=== PATIENT | male | born 1970 | race Caucasian/White ===

== ENCOUNTER 2017-07-18 20:49 | Emergency (ER) | payer MEDICAID ==
[2017-07-18 20:57] VITALS: BP 143/75; PULSE 85; RESP 20; TEMP 98.3; O2SAT 99
--- NOTE | 2017-07-18 21:22 | ED PDOC ---
Upper Extremity Pain/Injury Time Seen by Provider: 07/18/17 21:09 Chief Complaint (Nursing): Upper Extremity Problem/Injury Chief Complaint (Provider): left arm discomfort History Per: Patient History/Exam Limitations: no limitations Onset/Duration Of Symptoms: Hrs Current Symptoms Are (Timing): Better Additional History Per: Patient Additional Complaint(s): 47 y/o male presents for eval of left arm discomfort x 2 hours. Patient states symptoms started in left upper arm, then noticed tingling to digits 1-4 of left hand. Patient states he then noticed discomfort to left side of neck. Patient notes he had a sharp pain to left armpit a few days ago, unknown if related. History of pinched nerve to right side of neck diagnosed years ago. Denies headache, dizziness, extremity swelling/weakness, chest pain, shortness of breath, palpitations. Past Medical History Vital Signs: Last Vital Signs Temp 98.3 F 07/18/17 20:54 Pulse 85 07/18/17 20:54 Resp 20 07/18/17 20:54 BP 143/75 07/18/17 20:54 Pulse Ox 99 07/18/17 20:54 - Medical History PMH: Asthma (LAST ATTACK 06/17/16), HIV, Hypercholesterolemia, Sexually Transmitted Disease (HERPES) Denies: Chronic Kidney Disease - Family History Family History: States: Unknown Family Hx - Home Medications Home Medications: Ambulatory Orders Medication Instructions Recorded Albuterol HFA [Ventolin HFA 90 2 puff IH [id number] 06/22/16 mcg/actuation (8 g)] Atorvastatin [Lipitor] 20 mg PO DAILY 06/22/16 Elviteg/Annie/Emtric/Tenofo Dis 1 tab PO DAILY 06/22/16 [Stribild] Temazepam [Restoril] 15 mg PO DAILY 06/22/16 valACYclovir [Valtrex] 1 gm PO DAILY 06/22/16 Naproxen [Naprosyn] 500 mg PO Q12 PRN #20 tablet 07/18/17 - Allergies Allergies/Adverse Reactions: Allergies Allergy/AdvReac Type Severity Reaction Status Date / Time ciprofloxacin [From Cipro] Allergy RASH Verified 07/18/17 20:52 codeine Allergy RASH Verified 07/18/17 20:52 Review of Systems ROS Statement: Except As Marked, All Systems Reviewed And Found Negative Musculoskeletal: Positive for: Neck Pain, Arm Pain Physical Exam - Reviewed Nursing Documentation Reviewed: Yes Vital Signs Reviewed: Yes - Physical Exam Appears: Positive for: Well, Non-toxic, No Acute Distress Head Exam: Positive for: ATRAUMATIC, NORMAL INSPECTION, NORMOCEPHALIC Skin: Positive for: Normal Color Eye Exam: Positive for: Normal appearance ENT: Positive for: Normal ENT Inspection Cardiovascular/Chest: Positive for: Regular Rate, Rhythm Respiratory: Positive for: Normal Breath Sounds Gastrointestinal/Abdominal: Positive for: Normal Exam Back: Positive for: Normal Inspection Extremity: Positive for: Normal ROM Neurologic/Psych: Positive for: Alert, Oriented. Negative for: Motor/Sensory Deficits - Laboratory Results Result Diagrams: 07/18/17 21:55 07/18/17 22:04 - ECG ECG: Positive for: Viewed By Me (reviewed by ED attending) ECG Rhythm: Positive for: Sinus Rhythm O2 Sat by Pulse Oximetry: 99 - Progress ED Course And Treament: ekg, labs Patient educated on findings, discharged with instructions to follow up PMD 2-3 days. Rx naproxen provided. Return to ED for worsening/concerning symptoms. Disposition - Clinical Impression Clinical Impression: Paresthesia and pain of left extremity - Patient ED Disposition Is Patient to be Admitted: No Counseled Patient/Family Regarding: Studies Performed, Diagnosis, Need For Followup - Disposition Disposition: Routine/Home Disposition Time: 23:24 Condition: IMPROVED Additional Instructions: Follow up with primary doctor in 2-3 days. Take medication as directed, as needed. Return to ED for worsening/concerning symptoms. Prescriptions: Naproxen [Naprosyn] 500 mg PO Q12 PRN #20 tablet PRN Reason: Pain, Moderate (4-7) Instructions: Paresthesia (ED)
[2017-07-18 22:23] LABS: BASO # 0.1 K/uL (0.0-0.2); BASO % 0.9 % (0.0-2.0); EOS # 0.1 K/uL (0.0-0.7); EOS % 0.9 % (0.0-4.0); HEMATOCRIT 41.6 % (35.0-51.0); LYMPH % 24.4 % (20.0-40.0); MEAN PLATELET VOLUME 8.5 fl (7.2-11.7); MONO # 0.6 K/uL (0.0-0.8); MONO % 7.1 % (0.0-10.0); NEUT # 5.5 K/uL (1.8-7.0); NEUT % 66.7 % (50.0-75.0); RED CELL DISTRIBUTION WIDTH 13.8 % (11.5-14.5); WHITE BLOOD COUNT 8.2 K/uL (4.8-10.8)
[2017-07-18 22:37] LABS: ALB/GLOB RATIO 1.2 (1.0-2.1); ALKALINE PHOSPHATASE 146 U/L (38-126); ALT/SGPT 53 U/L (21-72); AST/SGOT 34 U/L (17-59); BILIRUBIN,TOTAL 0.4 mg/dl (0.2-1.3); BLOOD UREA NITROGEN 13 mg/dl (9-20); CALCIUM 9.5 mg/dL (8.4-10.2); CARBON DIOXIDE 23 mmol/L (22-30); CHLORIDE 103 mmol/L (98-107); GFR AFRICAN-AMERICAN > 60; GLUCOSE,RANDOM 98 mg/dL (75-110); POTASSIUM 3.9 MMOL/L (3.6-5.0); SODIUM 139 mmol/l (132-148); TOTAL PROTEIN 8.5 G/DL (6.3-8.2)
== END 2017-07-18 23:55 | disposition home or self-care (01) ==
LOC: H.ER 20:49
DX: R20.2 Paresthesia of skin (principal); J45.909 Unspecified asthma, uncomplicated

== ENCOUNTER 2018-02-17 12:44 | Emergency (ER) | payer MEDICAID ==
[2018-02-17 12:48] VITALS: BP 131/74; PULSE 72; RESP 18; TEMP 98.3; O2SAT 100
--- NOTE | 2018-02-17 13:54 | ED PDOC ---
HPI: Back Time Seen by Provider: 02/17/18 12:51 Chief Complaint (Nursing): Back Pain Chief Complaint (Provider): Back Pain History Per: Patient History/Exam Limitations: no limitations Onset/Duration Of Symptoms: Days (x2 weeks) Current Symptoms Are (Timing): Still Present Additional Complaint(s): 47 year old male presents to the emergency department with a complaint of a lower back pain x2 weeks which has increased in intensity for the past few days. Pain worsens with movement. Denies trauma, fever, chills, heavy drug use, bowel / bladder incontinence, paresthesia, weakness or any urinary symptoms. PMD: Dr. Riley Rice MD Past Medical History Reviewed: Historical Data, Nursing Documentation, Vital Signs Vital Signs: Last Vital Signs Temp 98.3 F 02/17/18 12:46 Pulse 72 02/17/18 12:46 Resp 18 02/17/18 12:46 BP 131/74 02/17/18 12:46 Pulse Ox 100 02/17/18 12:46 - Medical History PMH: Asthma (LAST ATTACK 06/17/16), HIV, Hypercholesterolemia, Sexually Transmitted Disease (HERPES) Denies: Chronic Kidney Disease - Family History Family History: States: Unknown Family Hx - Social History Current smoker - smoking cessation education provided: No - Home Medications Home Medications: Ambulatory Orders Medication Instructions Recorded Albuterol HFA [Ventolin HFA 90 2 puff IH [id number] 06/22/16 mcg/actuation (8 g)] Atorvastatin [Lipitor] 20 mg PO DAILY 06/22/16 Elviteg/Nanie/Emtric/Tenofo Dis 1 tab PO DAILY 06/22/16 [Stribild] Temazepam [Restoril] 15 mg PO DAILY 06/22/16 valACYclovir [Valtrex] 1 gm PO DAILY 06/22/16 Ibuprofen [Motrin Tab] 1 tab PO Q6 PRN #20 tab 07/18/17 Cyclobenzaprine [Cyclobenzaprine 10 mg PO TID PRN #15 tab 02/17/18 HCl] Meloxicam [Mobic] 15 mg PO DAILY #20 tab 02/17/18 - Allergies Allergies/Adverse Reactions: Allergies Allergy/AdvReac Type Severity Reaction Status Date / Time ciprofloxacin [From Cipro] Allergy RASH Verified 07/18/17 20:52 codeine Allergy RASH Verified 07/18/17 20:52 Review of Systems ROS Statement: Except As Marked, All Systems Reviewed And Found Negative (As per HPI, otherwise negative) Constitutional: Negative for: Fever, Chills, Other (Trauma/injury, or heavy drug use) Genitourinary Male: Negative for: Dysuria, Frequency, Incontinence, Hematuria Musculoskeletal: Positive for: Back Pain (Lower region) Physical Exam - Reviewed Nursing Documentation Reviewed: Yes Vital Signs Reviewed: Yes - Physical Exam Appears: Positive for: In Acute Distress ( Mild painful) Head Exam: Positive for: NORMAL INSPECTION Skin: Positive for: Warm, Dry. Negative for: Cyanosis Eye Exam: Positive for: Normal appearance. Negative for: Other (conjunctival pallor) ENT: Positive for: Normal ENT Inspection (mucous membranes moist) Neck: Positive for: Normal, Supple. Negative for: Pain On Movement Of Neck ( tenderness or stiffness) Cardiovascular/Chest: Positive for: Regular Rate, Rhythm. Negative for: Gallop , Murmur, Irregularly Irregular Respiratory: Positive for: Normal Breath Sounds (equal bilaterally). Negative for: Accessory Muscle Use, Rales, Rhonchi, Wheezing, Respiratory Distress Gastrointestinal/Abdominal: Positive for: Normal Exam, Soft. Negative for: Tenderness, Mass Back: Positive for: Other (Point tenderness to the L4 and L5 region). Negative for: Normal Inspection (No direct bony tenderness, straight leg raising bilaterally,), L CVA Tenderness, R CVA Tenderness, Muscle Spasm Extremity: Positive for: Normal ROM, Capillary Refill (Distal pulses good bilaterally.), Other (Intact sensation bilaterally; normal strength in extension of the knees, plantar and dorsiflexion of the toes.). Negative for: Tenderness (No direct bony tenderess or straight leg raising b/l), Deformity Lymphatic: Positive for: Normal Exam. Negative for: Adenopathy Neurologic/Psych: Positive for: Alert, Oriented (x3) - ECG O2 Sat by Pulse Oximetry: 100 (RA) Pulse Ox Interpretation: Normal Medical Decision Making Medical Decision Making: Time: 1308 Initial impression: Back pain Initial plan: --Cyclobenzaprine 10 mg PO --Toradol 60 mg IM --Urine Culture --Urinalysis --LS Spine x-ray --Reevaluation UA (-) XR L spine : (-) acute abnormality, as read by PA Time: 1454 --Patient is medically stable for discharge and given Rx for Cyclobenzaprine HCl 10 mg and Mobic 15 mg . Advised to follow up with primary care physician in 1-2 days without fail. Advised to take medication as prescribed. Return to the emergency room at any time for any new or worsening symptoms. Patient states he fully agrees with and understands discharge instructions. States that he agrees with the plan and disposition. Verbalized and repeated discharge instructions and plan. I have given the patient opportunity to ask any additional questions. Clinical Impression: Low back pain Scribe Attestation: Documented by Marcella Gallego, acting as a scribe for Marly Up PA-C Provider Scribe Attestation: All medical record entries made by the Scribe were at my direction and personally dictated by me. I have reviewed the chart and agree that the record accurately reflects my personal performance of the history, physical exam, medical decision making, and the department course for this patient. I have also personally directed, reviewed, and agree with the discharge instructions and disposition. Disposition - Clinical Impression Clinical Impression: Low back pain - Patient ED Disposition Is Patient to be Admitted: No Counseled Patient/Family Regarding: Diagnosis, Need For Followup, Rx Given - Disposition Disposition: Routine/Home Disposition Time: 14:45 Condition: STABLE Additional Instructions: Thank you for letting us take care of you today. You were treated for low back pain. The emergency medical care you received today was directed at your acute symptoms. If you were prescribed any medication, please fill it and take as directed. It may take several days for your symptoms to resolve. Return to the Emergency Department if your symptoms worsen, do not improve, or if you have any other problems. Please contact your doctor in 2 days for re-evaluation and follow up. Bring any paperwork you were given at discharge with you along with any medications you are taking to your follow up visit. Our treatment cannot replace ongoing medical care by a primary care provider (PCP) outside of the emergency department. Thank you for allowing the [facility] team to be part of your care today. If you had an X-Ray : A Radiologist will review the ED reading if any change in treatment is needed we will contact you. Prescriptions: Cyclobenzaprine [Cyclobenzaprine HCl] 10 mg PO TID PRN #15 tab PRN Reason: Muscle Spasm Meloxicam [Mobic] 15 mg PO DAILY #20 tab Instructions: Low Back Pain in Adults Forms: [facility] (C[place] Verdean), [facility] ED School/Work Excuse
[2018-02-17 14:37] LABS: URINE BILIRUBIN NEGATIVE (NEGATIVE); URINE BLOOD SMALL (NEGATIVE); URINE CLARITY CLEAR (Clear); URINE COLOR YELLOW (YELLOW); URINE GLUCOSE (UA) NEG (Normal); URINE LEUKOCYTE ESTERASE NEG Leu/uL (Negative); URINE PROTEIN NEGATIVE (NEGATIVE); URINE UROBILINOGEN 0.2-1.0 mg/dL (0.2-1.0)
--- NOTE | 2018-02-17 15:20 | RAD ---
PROCEDURE: Lumbar spine dated 02/17/2018 Multiple views of the lumbar spine performed. HISTORY: Low back pain COMPARISON: No prior. FINDINGS: BONES: No acute compression fractures no retropulsed fragments. Vertebral bodies exhibit normal stature. Vertebral bodies and facets normally aligned. DISC SPACES: Minor posterior disc space narrowing seen at the L5-S1 level. Tiny marginal anterior osteophyte formation present at this level as well. The facet joints slightly hypertrophic L5-S1 and L4-L5 levels. The remaining disc space heights are relatively maintained. OTHER FINDINGS: None. IMPRESSION: No acute fractures. Minor degenerative spondylosis most notably affecting the
== END 2018-02-17 14:53 | disposition home or self-care (01) ==
LOC: H.ER 12:44
DX: M54.5 Low back pain (principal); E78.00 Pure hypercholesterolemia, unspecified; J45.909 Unspecified asthma, uncomplicated
CPT/HCPCS: 72110; 81003; 87086; 96372; 99282; J1885

== ENCOUNTER 2018-06-25 15:52 | Emergency (ER) | payer MEDICAID ==
[2018-06-25 15:58] VITALS: BMI 30.9
[2018-06-25 16:00] VITALS: RESP 18; TEMP 98
--- NOTE | 2018-06-25 16:47 | ED PDOC ---
HPI: Back Time Seen by Provider: 06/25/18 16:15 Chief Complaint (Nursing): Back Pain Chief Complaint (Provider): back pain History Per: Patient Additional Complaint(s): Pt states he woke up yesterday with low back pain, got worse after laughing. Pain persisted today, worse when moving lower extremities. Pt states was see in ED before for back pain. No bowel or bladder dysfunction. Pt did not take anything for pain thus far. Past Medical History Reviewed: Nursing Documentation, Vital Signs Vital Signs: Last Vital Signs Temp 98 F 06/25/18 15:59 Pulse 81 06/25/18 15:59 Resp 18 06/25/18 15:59 BP 121/75 06/25/18 15:59 Pulse Ox 99 06/25/18 15:59 - Medical History PMH: Asthma (LAST ATTACK 06/17/16), HIV, Hypercholesterolemia, Sexually Transmitted Disease (HERPES) Denies: Chronic Kidney Disease - Family History Family History: States: Unknown Family Hx - Home Medications Home Medications: Ambulatory Orders Medication Instructions Recorded Albuterol HFA [Ventolin HFA 90 2 puff IH [id number] 06/22/16 mcg/actuation (8 g)] Atorvastatin [Lipitor] 20 mg PO DAILY 06/22/16 Elviteg/Annie/Emtric/Tenofo Dis 1 tab PO DAILY 06/22/16 [Stribild] Temazepam [Restoril] 15 mg PO DAILY 06/22/16 valACYclovir [Valtrex] 1 gm PO DAILY 06/22/16 Ibuprofen [Motrin Tab] 1 tab PO Q6 PRN #20 tab 07/18/17 Cyclobenzaprine [Cyclobenzaprine 10 mg PO TID PRN #15 tab 02/17/18 HCl] Meloxicam [Mobic] 15 mg PO DAILY #20 tab 02/17/18 Cyclobenzaprine [Cyclobenzaprine 10 mg PO TID #20 tab 06/25/18 HCl] Ibuprofen [Motrin] 600 mg PO Q6 #20 tab 06/25/18 Methylprednisolone [Medrol Dose 4 mg PO DAILY #21 mg 06/25/18 Pack (21 tabs)] oxyCODONE/Acetaminophen [Percocet 1 ea PO Q6 PRN #5 tab 06/25/18 5/325 mg Tab] - Allergies Allergies/Adverse Reactions: Allergies Allergy/AdvReac Type Severity Reaction Status Date / Time ciprofloxacin [From Cipro] Allergy RASH Verified 06/25/18 16:02 codeine Allergy RASH Verified 06/25/18 16:02 Review of Systems ROS Statement: Except As Marked, All Systems Reviewed And Found Negative Musculoskeletal: Positive for: Back Pain Physical Exam - Reviewed Nursing Documentation Reviewed: Yes Vital Signs Reviewed: Yes - Physical Exam Appears: Positive for: Well, Non-toxic, No Acute Distress Head Exam: Positive for: ATRAUMATIC, NORMAL INSPECTION, NORMOCEPHALIC Skin: Positive for: Normal Color, Warm, DRY Eye Exam: Positive for: EOMI, Normal appearance, PERRL ENT: Positive for: Normal ENT Inspection Neck: Positive for: Normal, Painless ROM Cardiovascular/Chest: Positive for: Regular Rate, Rhythm Respiratory: Positive for: CNT, Normal Breath Sounds Gastrointestinal/Abdominal: Positive for: Normal Exam, Soft Back: Positive for: Normal Inspection, Muscle Spasm, Other (LS paraspinal tenderness). Negative for: L CVA Tenderness, R CVA Tenderness, Vertebral Tenderness Extremity: Positive for: Normal ROM Neurologic/Psych: Positive for: Alert, Oriented - ECG O2 Sat by Pulse Oximetry: 99 Medical Decision Making Medical Decision Making: Pt medicated with Flexeril and Toradol to begin reports no improvement on re-eval. Meciated with IM Moprhine on re-eval prior to discharge Pt doing well. no complaints of pain. Pt aferbile. ambulating with steady gait Disposition - Clinical Impression Clinical Impression: Low back pain, Lumbar disc herniation - Patient ED Disposition Is Patient to be Admitted: No - Disposition Disposition: Routine/Home Disposition Time: 18:00 Condition: STABLE Prescriptions: Cyclobenzaprine [Cyclobenzaprine HCl] 10 mg PO TID #20 tab Ibuprofen [Motrin] 600 mg PO Q6 #20 tab Methylprednisolone [Medrol Dose Pack (21 tabs)] 4 mg PO DAILY #21 mg oxyCODONE/Acetaminophen [Percocet 5/325 mg Tab] 1 ea PO Q6 PRN #5 tab PRN Reason: Pain, Severe (8-10) Instructions: Low Back Pain in Adults, Herniated Disc Forms: [employer] (Estonian)
[2018-06-25 20:49] VITALS: BP 118/76; PULSE 75
[2018-07-05 23:31] VITALS: O2SAT 99
== END 2018-06-25 20:48 | disposition home or self-care (01) ==
LOC: H.ER 15:52
DX: M54.5 Low back pain (principal); M51.26 Other intervertebral disc displacement, lumbar region; E78.00 Pure hypercholesterolemia, unspecified
CPT/HCPCS: 96372; 96374; 99283; J1885; J2270

== ENCOUNTER 2018-09-28 17:39 | Emergency (ER) | payer MEDICAID ==
[2018-09-28 17:39] VITALS: BMI 30.9
[2018-09-28 18:04] VITALS: RESP 18
--- NOTE | 2018-09-28 19:13 | ED PDOC ---
HPI: Back Time Seen by Provider: 09/28/18 18:35 Chief Complaint (Nursing): Back Pain Chief Complaint (Provider): back pain History Per: Patient History/Exam Limitations: no limitations Onset/Duration Of Symptoms: Days (x2), Worse Since Current Symptoms Are (Timing): Still Present Previous Symptoms: Back Pain Additional Complaint(s): 48 year old male, with a past medical history of HIV and chronic back pain, who presents to the emergency department complaining of a worsening left sided back pain x2 days. Patient states pain begins on left buttock and radiates down the left leg to the inner part of the foot. He hasn't performed any unusual activities and states pain doesn't worsen with twisting motions. He took Flexeril 10 mg and Mobic today, last dose at 14:00 with no relief of pain. Patient has been seen twice this year for similar complaints, he was seen in January where he was diagnosed with sciatica and Rx Flexeril and Mobic which helped after taking it for several days. He also presented in May where he was told it was likely a herniated disc and was again given Flexeril with some improvement. Patient states pain is causing him difficulty sitting. He denies any trauma to the area, numbness or tingling in left lower extremity. PMD: Dash Rice Past Medical History Reviewed: Historical Data, Nursing Documentation, Vital Signs Vital Signs: Last Vital Signs Temp 98.1 F 09/28/18 18:02 Pulse 97 H 09/28/18 18:02 Resp 18 09/28/18 18:02 BP 118/62 09/28/18 18:02 Pulse Ox 98 09/28/18 18:02 - Medical History PMH: Asthma (LAST ATTACK 06/17/16), Back Problems (chronic), HIV, Hyperchol esterolemia, Sexually Transmitted Disease (HERPES) Denies: Chronic Kidney Disease - Surgical History Surgical History: No Surg Hx - Family History Family History: States: Unknown Family Hx - Social History Current smoker - smoking cessation education provided: No Ex-Smoker (has not smoked in the last 12 months): No Drugs: Denies - Home Medications Home Medications: Ambulatory Orders Medication Instructions Recorded Albuterol HFA [Ventolin HFA 90 2 puff IH [id number] 06/22/16 mcg/actuation (8 g)] Atorvastatin [Lipitor] 20 mg PO DAILY 06/22/16 Elviteg/Annie/Emtric/Tenofo Dis 1 tab PO DAILY 06/22/16 [Stribild] Temazepam [Restoril] 15 mg PO DAILY 06/22/16 valACYclovir [Valtrex] 1 gm PO DAILY 06/22/16 Ibuprofen [Motrin Tab] 1 tab PO Q6 PRN #20 tab 07/18/17 Cyclobenzaprine [Cyclobenzaprine 10 mg PO TID PRN #15 tab 02/17/18 HCl] Meloxicam [Mobic] 15 mg PO DAILY #20 tab 02/17/18 Cyclobenzaprine [Cyclobenzaprine 10 mg PO TID #20 tab 06/25/18 HCl] Ibuprofen [Motrin] 600 mg PO Q6 #20 tab 06/25/18 Methylprednisolone [Medrol Dose 4 mg PO DAILY #21 mg 06/25/18 Pack (21 tabs)] oxyCODONE/Acetaminophen [Percocet 1 ea PO Q6 PRN #5 tab 06/25/18 5/325 mg Tab] Lidocaine 5% [Lidoderm] 1 patch TOP DAILY 5 Days patch 09/28/18 Meloxicam [Mobic] 15 mg PO DAILY 7 Days tab 09/28/18 - Allergies Allergies/Adverse Reactions: Allergies Allergy/AdvReac Type Severity Reaction Status Date / Time ciprofloxacin [From Cipro] Allergy RASH Verified 09/28/18 18:02 codeine Allergy RASH Verified 09/28/18 18:02 Review of Systems ROS Statement: Except As Marked, All Systems Reviewed And Found Negative Musculoskeletal: Positive for: Back Pain (left sided that radiates down the left leg and inner foot) Neurological: Negative for: Weakness, Numbness (tingling), Incoordination Physical Exam - Reviewed Nursing Documentation Reviewed: Yes Vital Signs Reviewed: Yes - Physical Exam Appears: Positive for: Uncomfortable Head Exam: Positive for: ATRAUMATIC, NORMAL INSPECTION, NORMOCEPHALIC Skin: Positive for: Normal Color, Warm, Dry Eye Exam: Positive for: Normal appearance, EOMI, PERRL Neck: Positive for: Normal, Painless ROM, Supple Cardiovascular/Chest: Positive for: Regular Rate, Rhythm Respiratory: Positive for: Normal Breath Sounds Pulses-Post. Tibialis (L): 1+ Gastrointestinal/Abdominal: Positive for: Normal Exam Back: Positive for: Decreased ROM (pain with flexion and some with extension at hip), Other (Pain with flexion and extension of the spine. On visual inspection of left buttock, no signs of erythema, edema or tenderness). Negative for: L CVA Tenderness, R CVA Tenderness, Vertebral Tenderness (No spinal tenderness) Extremity: Positive for: Normal ROM (active and passive ROM of b/l lower extremities normal. Able to to extend and flex ankles and toes), Other (DP pulses not palpable) Neurologic/Psych: Positive for: Alert, Oriented. Negative for: Motor/Sensory Deficits (Equal strength bilaterally. Sensation to light touch intact on b/l lower extremities) - ECG O2 Sat by Pulse Oximetry: 98 (RA) Pulse Ox Interpretation: Normal Medical Decision Making Medical Decision Making: Time: 18:35 Initial Impression: Sciatica Initial Plan: --Urine dipstick --Toradol 30 mg IM --Reevaluation 20:35 Upon provider evaluation patient is medically stable, and requires no further treatment in the ED at this time. Patient will be discharged home. Counseling was provided and all questions were answered regarding diagnosis and need for follow up with PMD. There is agreement to discharge plan. Return if symptoms persist or worsen. Scribe Attestation: Documented by Rafa Roman, acting as a scribe for Ivonne Nicole PA-C Provider Scribe Attestation: All medical record entries made by the Scribe were at my direction and personally dictated by me. I have reviewed the chart and agree that the record accurately reflects my personal performance of the history, physical exam, medical decision making, and the department course for this patient. I have also personally directed, reviewed, and agree with the discharge instructions and disposition. Disposition - Clinical Impression Clinical Impression: Sciatica - Patient ED Disposition Is Patient to be Admitted: No Counseled Patient/Family Regarding: Studies Performed, Diagnosis, Need For Followup - Disposition Referrals: Dash Rice MD [Family Provider] - Disposition: Routine/Home Disposition Time: 20:35 Condition: STABLE Additional Instructions: Your pain will improve but not completely subside for several days. Continue to use Mobic, Flexeril and Lidocaine patch. F/u with physical therapy for chronic management. Prescriptions: Lidocaine 5% [Lidoderm] 1 patch TOP DAILY 5 Days patch Meloxicam [Mobic] 15 mg PO DAILY 7 Days tab Instructions: Sciatica (DC) Forms: [employer] (Peruvian) Print Language: MONGOLIAN
[2018-09-28] MEDS ORDERED: Lidocaine/Prilocaine CREAM 5GM TP ONE (19:32)
[2018-09-28] MEDS ORDERED: Lidocaine 5% Patch TD ONE (19:32)
[2018-09-28 21:10] VITALS: BP 124/76; PULSE 86; TEMP 98
[2018-09-29 01:51] VITALS: O2SAT 98
[2018-09-29] MEDS ORDERED: Lidocaine 5% Patch TD ONE (19:16)
== END 2018-09-28 21:05 | disposition home or self-care (01) ==
LOC: H.ER 17:39
DX: M54.32 Sciatica, left side (principal); E78.00 Pure hypercholesterolemia, unspecified; B20 Human immunodeficiency virus [HIV] disease
CPT/HCPCS: 96372; 99283; J1885

== ENCOUNTER 2018-10-01 20:05 | Observation (INO) | payer MEDICAID ==
[2018-10-01 20:05] VITALS: BMI 30.9
[2018-10-01] MEDS ORDERED: Morphine 4 MG/ML VIAL ONE (21:05)
--- NOTE | 2018-10-01 22:46 | ED PDOC ---
Addendum entered and electronically signed by Gale Taylor PA-C 10/01/18 23:30: Addendum Addendum: 10/01/18 23:29 Discussed admission with El Dick DNP for admission of intractable back pain. Addendum entered and electronically signed by Gale Taylor PA-C 10/01/18 23:24: Addendum Addendum: Pt sleeping comfortable in bed. When attempting to have patient stand up for discharge he begins crying in pain. Pt states he cannot stand or sit in chair. Toradol and valium IM ordered. Original Note: HPI: Back Time Seen by Provider: 10/01/18 20:23 Chief Complaint (Nursing): Back Pain Chief Complaint (Provider): Left lower back pain, radiates down leg History Per: Patient History/Exam Limitations: no limitations Onset/Duration Of Symptoms: Days Current Symptoms Are (Timing): Still Present Full Body Front + Back: 1 - Pain Associated Symptoms: None Additional Complaint(s): 48 yo male with history of HIV and chronic back pain/sciatica presents for evaluation of left lower back pain. PT reports pain sharp with movement. No numbness/tingling. No bladder or bowel incontinence. No fever/chills. Pt reports taking flexeril and antiinflammatory at home. Past Medical History Reviewed: Historical Data, Nursing Documentation, Vital Signs Vital Signs: Last Vital Signs Temp 98.3 F 10/01/18 20:06 Pulse 101 H 10/01/18 20:06 Resp 18 10/01/18 20:06 BP 124/74 10/01/18 20:06 Pulse Ox - Medical History PMH: Asthma (LAST ATTACK 06/17/16), Back Problems (chronic), HIV, Hypercholesterolemia, Sexually Transmitted Disease (HERPES) Denies: Chronic Kidney Disease - Surgical History Surgical History: No Surg Hx - Family History Family History: States: Unknown Family Hx - Living Arrangements Living Arrangements: With Family - Home Medications Home Medications: Ambulatory Orders Medication Instructions Recorded Albuterol HFA [Ventolin HFA 90 2 puff IH [id number] 06/22/16 mcg/actuation (8 g)] Atorvastatin [Lipitor] 20 mg PO DAILY 06/22/16 Elviteg/Annie/Emtric/Tenofo Dis 1 tab PO DAILY 06/22/16 [Stribild] Temazepam [Restoril] 15 mg PO DAILY 06/22/16 valACYclovir [Valtrex] 1 gm PO DAILY 06/22/16 RX: Ibuprofen [Motrin Tab] 1 tab PO Q6 PRN #20 tab 07/18/17 Cyclobenzaprine [Cyclobenzaprine 10 mg PO TID PRN #15 tab 02/17/18 HCl] Meloxicam [Mobic] 15 mg PO DAILY #20 tab 02/17/18 Cyclobenzaprine [Cyclobenzaprine 10 mg PO TID #20 tab 06/25/18 HCl] Ibuprofen [Motrin] 600 mg PO Q6 #20 tab 06/25/18 Methylprednisolone [Medrol Dose 4 mg PO DAILY #21 mg 06/25/18 Pack (21 tabs)] oxyCODONE/Acetaminophen [Percocet 1 ea PO Q6 PRN #5 tab 06/25/18 5/325 mg Tab] Lidocaine 5% [Lidoderm] 1 patch TOP DAILY 5 Days patch 09/28/18 Meloxicam [Mobic] 15 mg PO DAILY 7 Days tab 09/28/18 - Allergies Allergies/Adverse Reactions: Allergies Allergy/AdvReac Type Severity Reaction Status Date / Time ciprofloxacin [From Cipro] Allergy RASH Verified 09/28/18 18:02 codeine Allergy RASH Verified 09/28/18 18:02 Review of Systems ROS Statement: Except As Marked, All Systems Reviewed And Found Negative Constitutional: Negative for: Fever, Chills Gastrointestinal: Negative for: Nausea, Vomiting, Abdominal Pain, Diarrhea Genitourinary Male: Negative for: Incontinence Musculoskeletal: Positive for: Back Pain Physical Exam - Reviewed Nursing Documentation Reviewed: Yes Vital Signs Reviewed: Yes - Physical Exam Appears: Positive for: Well, Non-toxic, No Acute Distress Head Exam: Positive for: ATRAUMATIC, NORMAL INSPECTION, NORMOCEPHALIC Skin: Positive for: Normal Color, Warm, DRY Eye Exam: Positive for: Normal appearance ENT: Positive for: Normal ENT Inspection Neck: Positive for: Normal, Painless ROM Cardiovascular/Chest: Positive for: Regular Rate, Rhythm Respiratory: Positive for: Normal Breath Sounds. Negative for: Accessory Muscle Use, Respiratory Distress Back: Positive for: Normal Inspection. Negative for: Vertebral Tenderness Extremity: Negative for: Normal ROM ((+) left leg raise ) Neurologic/Psych: Positive for: Alert, Oriented Medical Decision Making Medical Decision Making: Morphine IM in ER. Pt states he does not want Rx for percocet because it does not work. Disposition - Clinical Impression Clinical Impression: Sciatica - Patient ED Disposition Is Patient to be Admitted: No Counseled Patient/Family Regarding: Diagnosis, Need For Followup, Rx Given - Disposition Disposition: Routine/Home Disposition Time: 22:45 Condition: GOOD Instructions: Sciatica (DC), Sciatica Exercises Forms: [facility] ([place]ian)
[2018-10-01 23:58] LABS: BASO # 0.1 K/uL (0.0-0.2); BASO % 0.7 % (0.0-2.0); EOS # 0.1 K/uL (0.0-0.7); EOS % 1.2 % (0.0-4.0); HEMOGLOBIN 14.5 g/dL (12.0-18.0); LYMPH # 2.4 K/uL (1.0-4.3); LYMPH % 27.8 % (20.0-40.0); MEAN CELL VOLUME 87.3 fl (80.0-94.0); MEAN CORPUSCULAR HEMOGLOBIN 29.1 pg (27.0-31.0); MEAN CORPUSCULAR HGB CONC 33.4 g/dL (33.0-37.0); MEAN PLATELET VOLUME 8.4 fl (7.2-11.7); MONO # 0.5 K/uL (0.0-0.8); MONO % 6.2 % (0.0-10.0); NEUT # 5.6 K/uL (1.8-7.0); NEUT % 64.1 % (50.0-75.0); RBC 4.99 Mil/uL (4.40-5.90); RED CELL DISTRIBUTION WIDTH 14.2 % (11.5-14.5); WHITE BLOOD COUNT 8.8 K/uL (4.8-10.8)
[2018-10-02 00:06] LABS: ALB/GLOB RATIO 1.2 (1.0-2.1); ALBUMIN 4.9 g/dL (3.5-5.0); ALT/SGPT 28 U/L (21-72); AST/SGOT 30 U/L (17-59); BLOOD UREA NITROGEN 11 mg/dl (9-20); CALCIUM 9.6 mg/dL (8.4-10.2); GFR NON-AFRICAN AMERICAN > 60
[2018-10-02 07:13] LABS: URINE BILIRUBIN NEGATIVE (NEGATIVE); URINE BLOOD NEGATIVE (NEGATIVE); URINE CLARITY CLEAR (Clear); URINE COLOR YELLOW (YELLOW); URINE GLUCOSE (UA) NEG (Normal); URINE LEUKOCYTE ESTERASE NEG Leu/uL (Negative); URINE PROTEIN NEGATIVE (NEGATIVE); URINE UROBILINOGEN 0.2-1.0 mg/dL (0.2-1.0)
--- NOTE | 2018-10-02 08:22 | RAD ---
Date of service: 10/02/2018 PROCEDURE: Radiographs of the Lumbar Spine. HISTORY: low back pain, radiating down leg COMPARISON: No prior. FINDINGS: BONES: Normal alignment. No listhesis. No fracture. DISC SPACES: Limited disc height loss seen at L5-S1 indicating degenerative disease. OTHER FINDINGS: None. IMPRESSION: Limited degenerative disease L5-S1. No fracture or spondylolisthesis identified.
[2018-10-02] MEDS ORDERED: Lidocaine 5% Patch TD ONE (08:30)
[2018-10-02] MEDS: Lidocaine 5% Patch TD SCH (08:37)
[2018-10-02] MEDS: Albuterol HFA 90 mcg/actuation (8 g) IH SCH ×2 (08:37→13:53)
[2018-10-02] MEDS ORDERED: Patient's Own Med (Valacyclovir [Valtrex] 1 GM) PO SCH (09:00)
--- NOTE | 2018-10-02 11:57 | CP.PCM.HP ---
History of Present Illness - History of Present Illness History of Present Illness: pt admitted for intractable back pain and c/o incr in pain w/ambulation. has h/o back pain w/ sciatica. was noncompliant w/ PT in the past. bw, urine nad imaging noted. c/o low abck pain w/ radiation to lle at present Present on Admission - Present on Admission Any Indicators Present on Admission: No Review of Systems - Musculoskeletal Musculoskeletal: As Per HPI, Back Pain Past Patient History - Past Medical History & Family History Past Medical History?: Yes - Past Social History Smoking Status: Never Smoked - CARDIAC Hx Cardiac Disorders: Yes - PULMONARY Hx Respiratory Disorders: Yes - NEUROLOGICAL Hx Neurological Disorder: No - HEENT Hx HEENT Problems: No - RENAL Hx Chronic Kidney Disease: No - ENDOCRINE/METABOLIC Hx Endocrine Disorders: No - HEMATOLOGICAL/ONCOLOGICAL Hx Human Immunodeficiency Virus (HIV): Yes - INTEGUMENTARY Hx Dermatological Problems: No - MUSCULOSKELETAL/RHEUMATOLOGICAL Hx Musculoskeletal Disorders: Yes - GASTROINTESTINAL Hx Gastrointestinal Disorders: No - GENITOURINARY/GYNECOLOGICAL Hx Sexually Transmitted Disorders: Yes (HERPES) - PSYCHIATRIC Hx Psychophysiologic Disorder: No Hx Emotional Abuse: No Hx Physical Abuse: No Hx Substance Use: No - SURGICAL HISTORY Hx Surgeries: No - ANESTHESIA Hx Anesthesia: No Meds Allergies/Adverse Reactions: Allergies Allergy/AdvReac Type Severity Reaction Status Date / Time ciprofloxacin [From Cipro] Allergy RASH Verified 09/28/18 18:02 codeine Allergy RASH Verified 09/28/18 18:02 Physical Exam - Constitutional Appears: Well, Non-toxic, No Acute Distress - Head Exam Head Exam: ATRAUMATIC, NORMAL INSPECTION, NORMOCEPHALIC - Eye Exam Eye Exam: EOMI, Normal appearance, PERRL Pupil Exam: NORMAL ACCOMODATION, PERRL - ENT Exam ENT Exam: Mucous Membranes Moist, Normal Exam - Neck Exam Neck exam: Positive for: Normal Inspection - Respiratory Exam Respiratory Exam: Clear to Auscultation Bilateral, NORMAL BREATHING PATTERN - Cardiovascular Exam Cardiovascular Exam: REGULAR RHYTHM, RRR, +S1, +S2 - GI/Abdominal Exam GI & Abdominal Exam: Normal Bowel Sounds, Soft. absent: Tenderness - Extremities Exam Extremities exam: Positive for: full ROM, normal capillary refill, normal inspection, pedal pulses present - Back Exam Back exam: FULL ROM, NORMAL INSPECTION Additional comments: pain on palpation of lower back - Neurological Exam Neurological exam: Alert, CN II-XII Intact, Normal Gait, Oriented x3, Reflexes Normal - Psychiatric Exam Psychiatric exam: Normal Affect, Normal Mood - Skin Skin Exam: Dry, Intact, Normal Color, Warm Results - Vital Signs Recent Vital Signs: Last Vital Signs Temp 98.2 F 10/01/18 22:48 Pulse 84 10/02/18 07:28 Resp 14 10/02/18 07:28 BP 116/76 10/02/18 07:28 Pulse Ox 97 10/02/18 06:18 - Labs Result Diagrams: 10/01/18 23:50 10/01/18 23:50 Labs: Laboratory Results - last 24 hr 10/01/18 10/01/18 10/02/18 23:50 23:50 06:09 WBC 8.8 RBC 4.99 Hgb 14.5 Hct 43.6 MCV 87.3 MCH 29.1 MCHC 33.4 RDW 14.2 Plt Count 304 MPV 8.4 Neut % (Auto) 64.1 Lymph % (Auto) 27.8 [place] % (Auto) 6.2 Eos % (Auto) 1.2 Baso % (Auto) 0.7 Neut # (Auto) 5.6 Lymph # (Auto) 2.4 [place] # (Auto) 0.5 Eos # (Auto) 0.1 Baso # (Auto) 0.1 Sodium 141 Potassium 3.9 Chloride 109 H Carbon Dioxide 21 L Anion Gap 15 BUN 11 Creatinine 0.8 Est GFR ( Amer) > 60 Est GFR (Non-Af Amer) > 60 Random Glucose 108 Calcium 9.6 Total Bilirubin 0.5 AST 30 ALT 28 Alkaline Phosphatase 122 Total Protein 9.0 H Albumin 4.9 Globulin 4.2 H Albumin/Globulin Ratio 1.2 Urine Color Yellow Urine Clarity Clear Urine pH 7.0 Ur Specific [place] 1.010 Urine Protein Negative Urine Glucose (UA) Neg Urine Ketones Negative Urine Blood Negative Urine Nitrate Negative Urine Bilirubin Negative Urine Urobilinogen 0.2-1.0 Ur Leukocyte Esterase Neg Urine RBC (Auto) 1 Urine Microscopic WBC < 1 Assessment & Plan (1) DVT prophylaxis Assessment and Plan: scd and ae hose ambulation anticoag if admitted over 24h Status: Acute (2) Intractable back pain Assessment and Plan: pain control muscle relaxer lidoderm patch mri, anesthesia consult Status: Acute (3) Sciatica Assessment and Plan: pain control, muscle relaxer, mri, anesthesia consult Status: Acute Decision To Admit - Pt Status Changed To: Hospital Disposition Of: Observation - . Bed Request Type: Med/Surg Admitting Physician: Caesar Moran
--- NOTE | 2018-10-02 12:33 | CP.PCM.CON ---
History of Present Illness - History of Present Illness History of Present Illness: 48 yo admitted with intractable back pain is referred for pain management. He states that he's dealt with the pain since January, and has been seen in the ER a few times. However, the pain had been axial before and is now shooting down the left leg to the ankle, which is a new presentation. He denies significant pain on the right side, or saddle anesthesia, urinary incontinence. In the past, he had tried PT without success. He's been given Mobic, Ibuprofen and Flexeril in the past with variable effects. Since admission, he's been put on Zanaflex and Toradol. MRI of the lumbar spine has been ordered but is pending. Past Patient History - Past Medical History & Family History Past Medical History?: Yes - Past Social History Smoking Status: Never Smoked - CARDIAC Hx Cardiac Disorders: Yes - PULMONARY Hx Respiratory Disorders: Yes - NEUROLOGICAL Hx Neurological Disorder: No - HEENT Hx HEENT Problems: No - RENAL Hx Chronic Kidney Disease: No - ENDOCRINE/METABOLIC Hx Endocrine Disorders: No - HEMATOLOGICAL/ONCOLOGICAL Hx Human Immunodeficiency Virus (HIV): Yes - INTEGUMENTARY Hx Dermatological Problems: No - MUSCULOSKELETAL/RHEUMATOLOGICAL Hx Musculoskeletal Disorders: Yes - GASTROINTESTINAL Hx Gastrointestinal Disorders: No - GENITOURINARY/GYNECOLOGICAL Hx Sexually Transmitted Disorders: Yes (HERPES) - PSYCHIATRIC Hx Psychophysiologic Disorder: No Hx Emotional Abuse: No Hx Physical Abuse: No Hx Substance Use: No - SURGICAL HISTORY Hx Surgeries: No - ANESTHESIA Hx Anesthesia: No Meds Allergies/Adverse Reactions: Allergies Allergy/AdvReac Type Severity Reaction Status Date / Time ciprofloxacin [From Cipro] Allergy RASH Verified 09/28/18 18:02 codeine Allergy RASH Verified 09/28/18 18:02 - Medications Medications: Current Medications Albuterol (Ventolin Hfa 90 Mcg/Actuation (8 G)) 2 puff IH RQ6 [facility] Last Admin: 10/02/18 08:37 Dose: Not Given Atorvastatin Calcium (Lipitor) 20 mg PO DAILY [facility] Last Admin: 10/02/18 08:37 Dose: Not Given Gabapentin (Neurontin) 300 mg PO TID [facility] Home Med (Elviteg/Annie/Emtric/Tenofo Dis [Stribild Tablet]) 1 tab PO DAILY [facility] Home Med (Valacyclovir [Valtrex]) 1 gm PO DAILY [facility] Ketorolac Tromethamine (Toradol) 30 mg IVP Q6 PRN PRN Reason: pain 6-10 Last Admin: 10/02/18 07:51 Dose: 30 mg Lidocaine (Lidoderm) 1 ea TD DAILY [facility] Last Admin: 10/02/18 08:37 Dose: Not Given Temazepam (Restoril) 15 mg PO DAILY [facility] Last Admin: 10/02/18 08:38 Dose: Not Given Tizanidine HCl (Zanaflex) 4 mg PO Q8 [facility] Last Admin: 10/02/18 08:34 Dose: 4 mg Tramadol HCl (Ultram) 50 mg PO Q6 PRN PRN Reason: Pain, severe (8-10) Physical Exam - Back Exam Back exam: CVA tenderness (L), paraspinal tenderness, vertebral tenderness Results - Vital Signs Recent Vital Signs: Last Vital Signs Temp 98.2 F 10/01/18 22:48 Pulse 84 10/02/18 07:28 Resp 14 10/02/18 07:28 BP 116/76 10/02/18 07:28 Pulse Ox 97 10/02/18 06:18 - Labs Result Diagrams: 10/01/18 23:50 10/01/18 23:50 Labs: Laboratory Results - last 24 hr 10/01/18 10/01/18 10/02/18 23:50 23:50 06:09 WBC 8.8 RBC 4.99 Hgb 14.5 Hct 43.6 MCV 87.3 MCH 29.1 MCHC 33.4 RDW 14.2 Plt Count 304 MPV 8.4 Neut % (Auto) 64.1 Lymph % (Auto) 27.8 [place] % (Auto) 6.2 Eos % (Auto) 1.2 Baso % (Auto) 0.7 Neut # (Auto) 5.6 Lymph # (Auto) 2.4 [place] # (Auto) 0.5 Eos # (Auto) 0.1 Baso # (Auto) 0.1 Sodium 141 Potassium 3.9 Chloride 109 H Carbon Dioxide 21 L Anion Gap 15 BUN 11 Creatinine 0.8 Est GFR ( Amer) > 60 Est GFR (Non-Af Amer) > 60 Random Glucose 108 Calcium 9.6 Total Bilirubin 0.5 AST 30 ALT 28 Alkaline Phosphatase 122 Total Protein 9.0 H Albumin 4.9 Globulin 4.2 H Albumin/Globulin Ratio 1.2 Urine Color Yellow Urine Clarity Clear Urine pH 7.0 Ur Specific [place] 1.010 Urine Protein Negative Urine Glucose (UA) Neg Urine Ketones Negative Urine Blood Negative Urine Nitrate Negative Urine Bilirubin Negative Urine Urobilinogen 0.2-1.0 Ur Leukocyte Esterase Neg Urine RBC (Auto) 1 Urine Microscopic WBC < 1 Assessment & Plan - Assessment and Plan (Free Text) Assessment: 48 yo w/ acute on chronic lower back pain. MRI of lumbar spine is pending, which will guide management. Needs to rule out ID etiology for pain first. - continue Zanaflex and Toradol - add Tramadol and Neurontin to regimen - f/u after MRI - in anticipation of possible injection, please keep NPO after midnight and hold anticoagulation
[2018-10-02] MEDS ORDERED: Morphine 4 MG/ML VIAL ONE (14:48)
[2018-10-02] MEDS: Sodium Chloride 0.9% 1,000 ML IV SCH (18:31)
[2018-10-02] MEDS ORDERED: Sodium Chloride 0.9% 500 ML IV ONE (19:50)
[2018-10-02] MEDS ORDERED: HYDROmorphone 0.5 mg/0.5 ml ISec IVP PRN (21:48)
[2018-10-03] MEDS ORDERED: HYDROmorphone 0.5 mg/0.5 ml ISec IVP PRN (00:30)
[2018-10-03] MEDS: Albuterol HFA 90 mcg/actuation (8 g) IH SCH (02:30)
[2018-10-03] MEDS: Sodium Chloride 0.9% 1,000 ML IV SCH (03:36)
[2018-10-03 06:46] LABS: BASO % 0.4 % (0.0-2.0); EOS # 0.2 K/uL (0.0-0.7); EOS % 1.9 % (0.0-4.0); HEMOGLOBIN 13.9 g/dL (12.0-18.0); LYMPH # 1.8 K/uL (1.0-4.3); LYMPH % 21.1 % (20.0-40.0); MEAN CELL VOLUME 88.2 fl (80.0-94.0); MEAN CORPUSCULAR HGB CONC 32.9 g/dL (33.0-37.0); MEAN PLATELET VOLUME 8.2 fl (7.2-11.7); MONO # 0.6 K/uL (0.0-0.8); MONO % 6.6 % (0.0-10.0); RBC 4.77 Mil/uL (4.40-5.90); RED CELL DISTRIBUTION WIDTH 14.6 % (11.5-14.5); WHITE BLOOD COUNT 8.5 K/uL (4.8-10.8)
[2018-10-03 06:48] LABS: PROTHROMBIN TIME 11.9 Seconds (9.8-13.1)
[2018-10-03 06:50] LABS: PARTIAL THROMBOPLASTIN TIME 33.2 Seconds (25.6-37.1)
[2018-10-03 07:01] LABS: ALB/GLOB RATIO 1.2 (1.0-2.1); ALBUMIN 4.4 g/dL (3.5-5.0); ALT/SGPT 26 U/L (21-72); AST/SGOT 25 U/L (17-59); BLOOD UREA NITROGEN 15 mg/dl (9-20); CALCIUM 9.2 mg/dL (8.4-10.2); GFR NON-AFRICAN AMERICAN > 60
--- NOTE | 2018-10-03 08:40 | CP.PCM.PN ---
Subjective - Date & Time of Evaluation Date of Evaluation: 10/03/18 Time of Evaluation: 08:37 - Subjective Subjective: pt still w/ left lower back pain radiating down lle. no f/c, n/v/d. bw noted. pt refused to have mri yesterday as he cannot lay flat on his back. no f/c, n/v/d. does have rom w/ pain. Objective - Vital Signs/Intake and Output Vital Signs (last 24 hours): Temp Pulse Resp BP Pulse Ox 97.7 F 82 19 118/74 99 10/03/18 08:03 10/03/18 08:03 10/03/18 08:03 10/03/18 08:03 10/03/18 08:03 - Medications Medications: Current Medications Albuterol (Ventolin Hfa 90 Mcg/Actuation (8 G)) 2 puff IH RQ6 [facility] Last Admin: 10/03/18 02:30 Dose: Not Given Diphenhydramine HCl (Benadryl) 25 mg PO Q6 PRN PRN Reason: Itching / Pruritus Last Admin: 10/02/18 23:05 Dose: 25 mg Gabapentin (Neurontin) 300 mg PO TID [facility] Last Admin: 10/02/18 18:35 Dose: Not Given Home Med (Elviteg/Annie/Emtric/Tenofo Dis [Stribild Tablet]) 1 tab PO DAILY [facility] Hydromorphone HCl (Dilaudid) 0.5 mg IVP Q4 PRN PRN Reason: Pain, severe (8-10) Stop: 10/04/18 21:49 Last Admin: 10/03/18 00:49 Dose: 0.5 mg Sodium Chloride (Sodium Chloride 0.9%) 1,000 mls @ 125 mls/hr IV .Q8H [facility] Stop: 10/03/18 18:18 Last Admin: 10/03/18 03:36 Dose: Not Given Ketorolac Tromethamine (Toradol) 30 mg IVP Q6 PRN PRN Reason: Pain, moderate (4-7) Last Admin: 10/03/18 06:06 Dose: 30 mg Lidocaine (Lidoderm) 1 ea TD DAILY [facility] Last Admin: 10/02/18 08:37 Dose: Not Given Ondansetron HCl (Zofran Inj) 4 mg IVP Q6 PRN PRN Reason: Nausea/Vomiting Last Admin: 10/02/18 19:55 Dose: 4 mg Temazepam (Restoril) 15 mg PO HS [facility] Last Admin: 10/02/18 23:07 Dose: Not Given Tizanidine HCl (Zanaflex) 4 mg PO Q8 [facility] Last Admin: 10/03/18 01:14 Dose: Not Given Tramadol HCl (Ultram) 50 mg PO Q6 PRN PRN Reason: Pain, severe (8-10) Last Admin: 10/02/18 13:50 Dose: 50 mg - Labs Labs: 10/03/18 05:45 10/03/18 05:45 PT 11.9 Seconds (9.8-13.1) 10/03/18 05:45 INR 1.0 10/03/18 05:45 APTT 33.2 Seconds (25.6-37.1) 10/03/18 05:45 - Constitutional Appears: Well, Non-toxic, No Acute Distress - Head Exam Head Exam: ATRAUMATIC, NORMAL INSPECTION, NORMOCEPHALIC - Eye Exam Eye Exam: EOMI, Normal appearance, PERRL Pupil Exam: NORMAL ACCOMODATION, PERRL - ENT Exam ENT Exam: Mucous Membranes Moist, Normal Exam - Neck Exam Neck Exam: Full ROM, Normal Inspection. absent: Lymphadenopathy - Respiratory Exam Respiratory Exam: Clear to Ausculation Bilateral, NORMAL BREATHING PATTERN - Cardiovascular Exam Cardiovascular Exam: REGULAR RHYTHM, RRR, +S1, +S2. absent: Murmur - GI/Abdominal Exam GI & Abdominal Exam: Soft, Normal Bowel Sounds. absent: Tenderness - Extremities Exam Extremities Exam: Full ROM, Normal Capillary Refill, Normal Inspection. absent: Joint Swelling, Pedal Edema - Back Exam Back Exam: muscle spasm, NORMAL INSPECTION, paraspinal tenderness - Neurological Exam Neurological Exam: Alert, Awake, CN II-XII Intact, Normal Gait, Oriented x3 - Psychiatric Exam Psychiatric exam: Normal Affect, Normal Mood - Skin Skin Exam: Dry, Intact, Normal Color, Warm Assessment and Plan (1) DVT prophylaxis Status: Acute (2) Intractable back pain Status: Acute (3) Sciatica Status: Acute - Assessment and Plan (Free Text) Assessment: (1) DVT prophylaxis Assessment and Plan: scd and ae hose ambulation anticoag if admitted over 24h-hold for possibel epidural Status: Acute (2) Intractable back pain Assessment and Plan: pain control muscle relaxer lidoderm patch mri, anesthesia consult morphine changed to dilaudid Status: Acute (3) Sciatica Assessment and Plan: pain control, muscle relaxer, mri, anesthesia consult Status: Acute pt felt dizzy after meds, given 500c ivf bolus and felt better.
[2018-10-03] MEDS: Lidocaine 5% Patch TD SCH (08:49)
[2018-10-03] MEDS: [UNRECOGNIZED DRUG - OTHER] PO SCH ×3 (08:54→13:15)
[2018-10-03] MEDS ORDERED: Bupivacaine HCl 0.25% PF (30 ml) Inj ONE (10:39)
[2018-10-03] MEDS ORDERED: MethylPREDNISolone Depo 40 mg/ml Inj ONE (10:39)
[2018-10-03] MEDS ORDERED: Lidocaine 1% Inj (20ml) ONE (10:40)
[2018-10-03] MEDS ORDERED: Iohexol 300 10 ML ONE (10:40)
[2018-10-03] MEDS ORDERED: Lidocaine 1% 5ml Abboject ONE (10:52)
[2018-10-03] MEDS ORDERED: Propofol 10 mg/ml Inj (20 ML) ONE (10:52)
[2018-10-03] MEDS ORDERED: Lactated Ringer's 500 ML IV ONE (11:00)
[2018-10-03] MEDS ORDERED: Bupivacaine HCl 0.25% PF (30 ml) Inj IJ ONE (11:07)
[2018-10-03] MEDS ORDERED: MethylPREDNISolone Depo 40 mg/ml Inj IM ONE (11:07)
[2018-10-03] MEDS ORDERED: Iohexol 300 10 ML IJ ONE (11:07)
--- NOTE | 2018-10-03 11:22 | MRI ---
Date of service: 10/03/2018 PROCEDURE: MR LUMBAR SPINE WITHOUT CONTRAST HISTORY: severe low back pain, difficulty ambulating COMPARISON: None available. TECHNIQUE: Multiecho multiplanar sequences were performed through the lumbar spine without the use of intravenous contrast. FINDINGS: Normal lumbar lordosis. Vertebral body heights are preserved. Benign hemangiomas suppresses completely during STIR imaging L1 and L2 with remaining matter signal normal. Conus medullaris unremarkable at the level of L1. Prevertebral and paraspinal soft tissues are unremarkable. T12-L1: No disc herniation, spinal canal stenosis or neural foraminal narrowing. L1-2: No disc herniation, spinal canal stenosis or neural foraminal narrowing. L2-3: No disc herniation, spinal canal stenosis or neural foraminal narrowing. L3-4: No disc herniation, spinal canal stenosis or neural foraminal narrowing. L4-5: No disc herniation, spinal canal stenosis or neural foraminal narrowing. Limited disc bulging without stenosis. Left facet joint effusion identified with mild bilateral facet joint degenerative arthropathy appreciated. L5-S1: A [id number] left paracentral disc herniation is identified with extruded disc material inferiorly which encroaches if not impinges the descending left S1 nerve root and causes moderate left lizzy canal stenosis. Right lizzy canal appears adequately patent and an underlying generalized disc bulge is appreciated mild but combines with mild facet joint degenerative arthropathy narrowing the lateral recesses somewhat. No neural foraminal stenosis bilaterally. OTHER FINDINGS: Prominent urinary bladder distension. IMPRESSION: 1. A mild circumferential disc bulge is identified at L5-S1 with a moderate left paracentral disc herniation with extruded disc material identified inferiorly causing moderate left lizzy canal stenosis. Left S1 nerve root is encroached if not impinged. 2. No additional disc herniation or significant stenosis throughout the remainder of the exam. 3. Benign hemangiomas L1 and L2.
--- NOTE | 2018-10-03 11:24 | CP.PCM.PN ---
Subjective - Date & Time of Evaluation Date of Evaluation: 10/03/18 Time of Evaluation: 11:15 - Subjective Subjective: 48 yo man w/ acute on chronic lower back pain. MRI revealed L5-S1 disc herniation with left foraminal stenosis. He's s/p left L5-S1 transforaminal epidural steroid injection and is now resting comfortably in the PACU. Procedure went well, and he may be discharged today with oral regimen and outpatient follow-up. Objective - Vital Signs/Intake and Output Vital Signs (last 24 hours): Temp Pulse Resp BP Pulse Ox 97.7 F 82 19 118/74 99 10/03/18 08:03 10/03/18 08:03 10/03/18 08:03 10/03/18 08:03 10/03/18 08:03 Intake and Output: 10/03/18 10/03/18 06:59 18:59 Intake Total 50 Balance 50 - Medications Medications: Current Medications Albuterol (Ventolin Hfa 90 Mcg/Actuation (8 G)) 2 puff IH RQ6 [facility] Last Admin: 10/03/18 02:30 Dose: Not Given Diphenhydramine HCl (Benadryl) 25 mg PO Q6 PRN PRN Reason: Itching / Pruritus Last Admin: 10/02/18 23:05 Dose: 25 mg Gabapentin (Neurontin) 300 mg PO TID [facility] Last Admin: 10/03/18 08:54 Dose: 300 mg Home Med (Elviteg/Annie/Emtric/Tenofo Dis [Stribild Tablet]) 1 tab PO DAILY [facility] Hydromorphone HCl (Dilaudid) 0.5 mg IVP Q4 PRN PRN Reason: Pain, severe (8-10) Stop: 10/04/18 21:49 Last Admin: 10/03/18 00:49 Dose: 0.5 mg Sodium Chloride (Sodium Chloride 0.9%) 1,000 mls @ 125 mls/hr IV .Q8H [facility] Stop: 10/03/18 18:18 Last Admin: 10/03/18 03:36 Dose: Not Given Ketorolac Tromethamine (Toradol) 30 mg IVP Q6 PRN PRN Reason: Pain, moderate (4-7) Last Admin: 10/03/18 06:06 Dose: 30 mg Lidocaine (Lidoderm) 1 ea TD DAILY [facility] Last Admin: 10/03/18 08:49 Dose: 1 ea Ondansetron HCl (Zofran Inj) 4 mg IVP Q6 PRN PRN Reason: Nausea/Vomiting Last Admin: 10/02/18 19:55 Dose: 4 mg Temazepam (Restoril) 15 mg PO HS [facility] Last Admin: 10/02/18 23:07 Dose: Not Given Tizanidine HCl (Zanaflex) 4 mg PO Q8 [facility] Last Admin: 10/03/18 08:56 Dose: 4 mg Tramadol HCl (Ultram) 50 mg PO Q6 PRN PRN Reason: Pain, severe (8-10) Last Admin: 10/03/18 08:46 Dose: 50 mg - Labs Labs: 10/03/18 05:45 10/03/18 05:45 PT 11.9 Seconds (9.8-13.1) 10/03/18 05:45 INR 1.0 10/03/18 05:45 APTT 33.2 Seconds (25.6-37.1) 10/03/18 05:45 - Constitutional Appears: No Acute Distress Assessment and Plan - Assessment and Plan (Free Text) Assessment: 48 yo with lumbar radiculopathy s/p lumbar epidural. - can be discharged with Tramadol/NEurontin/Zanaflex/Mobic - PT eval for dispo
[2018-10-03] MEDS ORDERED: Sodium Chloride 0.9% 1,000 ML IV SCH (11:45)
[2018-10-03 12:36] VITALS: O2SAT 95
[2018-10-03 13:01] VITALS: BP 116/72; PULSE 78; RESP 20; TEMP 97.8
--- NOTE | 2018-10-03 16:16 | PQF ---
PROVIDER RESPONSE TEXT: HIV, asymptomatic at this time REVIEWER QUERY TEXT: HIV Clarification and Associated Conditions HIV (Human immunodeficiency virus) is documented in the medical record. Please specify the type Such as: -- Symptomatic -- Asymptomatic -- Acquired immune deficiency syndrome [AIDS] -- [id number] complex [ARC -- With current or previous HIV-related condition (please specify related condition) -- Exposure to HIV -- Inconclusive serologic evidence of HIV -- Other, please specify Also please include any associated conditions, if applicable H and P: Hx Human Immunodeficiency Virus (HIV): Yes - Stribild ordered The patient's Clinical Indicators include: - Query created by: Christy Rico on 10/03/2018 3:18 PM Electronically signed by: El Dick APN 10/03/2018 4:13 PM
--- NOTE | 2018-10-03 23:01 | OP ---
PROCEDURE DATE: 10/03/2018 PREOPERATIVE DIAGNOSIS: Lumbar radiculopathy. POSTOPERATIVE DIAGNOSIS: Lumbar radiculopathy. PROCEDURE: Left L5-S1 transforaminal epidural steroid injection. ANESTHESIOLOGIST: Martell Bunch MD SURGEON: Aleks Rush MD TYPE OF ANESTHESIA: Monitored anesthesia care. COMPLICATIONS: None. SPECIMEN: None. DESCRIPTION OF PROCEDURE: After we had a discussion of the procedure with the patient including its risks, benefits, alternatives, outcome data, possibility of no effect, increased pain, the patient consented to the procedure. He denied any recent infection, bleeding tendencies or being on anticoagulants. A decision was then made to proceed to the OR. The patient was placed on the fluoroscopy table in a prone position with two pillows underneath his abdomen. The back was prepped and draped in the usual sterile fashion, and a sterile technique was adhered to during the entire procedure. The L5 vertebral level was first identified in the anteroposterior view. Angulation towards the left at approximately 20 degrees was used to maximize the visualization of the left L5 pedicle. The skin overlying the 6 o'clock position of the pedicle was then infiltrated with 1% lidocaine using a 25-gauge needle. Subsequently, a 22-gauge 3.5-inch spinal needle was then incrementally advanced under fluoroscopic guidance until tip of the needle would lie within the intervertebral foramen. After satisfactory positioning of the needle, approximately 0.5 mL of Isovue contrast was injected showing appropriate epidural nerve root spread without any signs of CSF or intervenous involvement. At this point, approximately 3 mL of 0.25% Marcaine and Depo-Medrol mixture was injected. The needle was then removed. The patient's back was cleaned and dried, bandages were applied. The patient was then transferred to the recovery area in good condition without any signs of WELL PULLER HEAD toxicity or any neurological deficit. He will be following up in the office in approximately two to four weeks. Aleks Rush MD
--- NOTE | 2018-10-04 09:54 | CP.PCM.DIS ---
Provider - Provider Date of Admission: 10/02/18 12:47 Attending physician: Caesar Moran MD Time Spent in preparation of Discharge (in minutes): 15 Diagnosis - Discharge Diagnosis (1) DVT prophylaxis Status: Acute (2) Intractable back pain Status: Acute (3) Sciatica Status: Acute Hospital Course - Lab Results Lab Results: Most Recent Lab Values WBC 8.5 K/uL (4.8-10.8) 10/03/18 05:45 RBC 4.77 Mil/uL (4.40-5.90) 10/03/18 05:45 Hgb 13.9 g/dL (12.0-18.0) 10/03/18 05:45 Hct 42.1 % (35.0-51.0) 10/03/18 05:45 MCV 88.2 fl (80.0-94.0) 10/03/18 05:45 MCH 29.0 pg (27.0-31.0) 10/03/18 05:45 MCHC 32.9 g/dL (33.0-37.0) L 10/03/18 05:45 RDW 14.6 % (11.5-14.5) H 10/03/18 05:45 Plt Count 252 K/uL (130-400) 10/03/18 05:45 MPV 8.2 fl (7.2-11.7) 10/03/18 05:45 Neut % (Auto) 70.0 % (50.0-75.0) 10/03/18 05:45 Lymph % (Auto) 21.1 % (20.0-40.0) 10/03/18 05:45 Dickens % (Auto) 6.6 % (0.0-10.0) 10/03/18 05:45 Eos % (Auto) 1.9 % (0.0-4.0) 10/03/18 05:45 Baso % (Auto) 0.4 % (0.0-2.0) 10/03/18 05:45 Neut # (Auto) 6.0 K/uL (1.8-7.0) 10/03/18 05:45 Lymph # (Auto) 1.8 K/uL (1.0-4.3) 10/03/18 05:45 Dickens # (Auto) 0.6 K/uL (0.0-0.8) 10/03/18 05:45 Eos # (Auto) 0.2 K/uL (0.0-0.7) 10/03/18 05:45 Baso # (Auto) 0.0 K/uL (0.0-0.2) 10/03/18 05:45 PT 11.9 Seconds (9.8-13.1) 10/03/18 05:45 INR 1.0 10/03/18 05:45 APTT 33.2 Seconds (25.6-37.1) 10/03/18 05:45 Sodium 142 mmol/l (132-148) 10/03/18 05:45 Potassium 4.1 MMOL/L (3.6-5.0) 10/03/18 05:45 Chloride 110 mmol/L (98-107) H 10/03/18 05:45 Carbon Dioxide 21 mmol/L (22-30) L 10/03/18 05:45 Anion Gap 15 (10-20) 10/03/18 05:45 BUN 15 mg/dl (9-20) 10/03/18 05:45 Creatinine 0.7 mg/dl (0.8-1.5) L 10/03/18 05:45 Est GFR ( Amer) > 60 10/03/18 05:45 Est GFR (Non-Af Amer) > 60 10/03/18 05:45 Random Glucose 92 mg/dL (75-110) 10/03/18 05:45 Calcium 9.2 mg/dL (8.4-10.2) 10/03/18 05:45 Total Bilirubin 0.8 mg/dl (0.2-1.3) 10/03/18 05:45 AST 25 U/L (17-59) 10/03/18 05:45 ALT 26 U/L (21-72) 10/03/18 05:45 Alkaline Phosphatase 105 U/L (38-126) 10/03/18 05:45 Total Protein 8.1 G/DL (6.3-8.2) 10/03/18 05:45 Albumin 4.4 g/dL (3.5-5.0) 10/03/18 05:45 Globulin 3.7 gm/dL (2.2-3.9) 10/03/18 05:45 Albumin/Globulin Ratio 1.2 (1.0-2.1) 10/03/18 05:45 Urine Color Yellow (YELLOW) 10/02/18 06:09 Urine Clarity Clear (Clear) 10/02/18 06:09 Urine pH 7.0 (5.0-8.0) 10/02/18 06:09 Ur Specific [place] 1.010 (1.003-1.030) 10/02/18 06:09 Urine Protein Negative mg/dL (NEGATIVE) 10/02/18 06:09 Urine Glucose (UA) Neg mg/dL (Normal) 10/02/18 06:09 Urine Ketones Negative mg/dL (NEGATIVE) 10/02/18 06:09 Urine Blood Negative (NEGATIVE) 10/02/18 06:09 Urine Nitrate Negative (NEGATIVE) 10/02/18 06:09 Urine Bilirubin Negative (NEGATIVE) 10/02/18 06:09 Urine Urobilinogen 0.2-1.0 mg/dL (0.2-1.0) 10/02/18 06:09 Ur Leukocyte Esterase Neg Ronald/uL (Negative) 10/02/18 06:09 Urine RBC (Auto) 1 /hpf (0-3) 10/02/18 06:09 Urine Microscopic WBC < 1 /hpf (0-5) 10/02/18 06:09 - Hospital Course Hospital Course: pain control mri anesthia w/ epidural pt Discharge Exam - Head Exam Head Exam: ATRAUMATIC, NORMAL INSPECTION, NORMOCEPHALIC Discharge Plan - Discharge Medications Prescriptions: Gabapentin [Neurontin] 300 mg PO TID #10 cap tiZANidine [Zanaflex] 4 mg PO Q8 #30 tab traMADol [Ultram] 50 mg PO Q6 PRN #10 tab PRN Reason: Pain, Severe (8-10) - Follow Up Plan Condition: GOOD Disposition: HOME/ ROUTINE Instructions: Sciatica (DC), Sciatica Exercises Additional Instructions: follow up with primary MD 1 week final dx-intractable low back pain w/ sciatica. pain meds to pharmacy and rx given. rted prn, meds pe rme drec. doing well. pain controlled. ambulating well Referrals: Regla Hernandez DO [Family Provider] - Aleks Rush MD [Staff Provider] -
--- NOTE | 2018-10-04 15:29 | RAD ---
Date of service: 10/03/2018 PROCEDURE: Intraoperative Fluoroscopy. HISTORY: PAIN MANAGEMENT FINDINGS: Fluoroscopic assistance was provided Fluoroscopy time = 22.8 sec. Radiation dose = 8.33 mGy. Please refer to the operative report from DANY Jefferson.
== END 2018-10-03 15:22 | disposition home or self-care (01) ==
LOC: H.ER 20:05 → H.ERHOLD 23:36 → OBSVTOIN 10-02 12:47 → INTOOBSV 10-02 12:47 → H.MEDSURG1 10-02 20:38
PROVIDERS: ADMIT Family Medicine; ATTEND Family Medicine
PROC: 3E0R33Z Introduction of Anti-inflammatory into Spinal Canal, Percutaneous Approach (ICD-10-PCS; principal; 2018-10-03 11:00)
DX: M51.17 Intervertebral disc disorders with radiculopathy, lumbosacral region (principal); G89.29 Other chronic pain; M48.061 Spinal stenosis, lumbar region without neurogenic claudication; Z21 Asymptomatic human immunodeficiency virus [HIV] infection status; J45.909 Unspecified asthma, uncomplicated; E78.00 Pure hypercholesterolemia, unspecified; Z91.19 Patient's noncompliance with other medical treatment and regimen; Z86.19 Personal history of other infectious and parasitic diseases; Z88.6 Allergy status to analgesic agent; Z88.1 Allergy status to other antibiotic agents; Z91.013 Allergy to seafood
CPT/HCPCS: 36415; 64483; 72114; 72148; 77003; 80053; 81003; 85025; 85610; 85730; 96372; 96374; 96375; 96376; 97162; 97166; 99285; G0378; G8978; G8979; G8987; G8988; J1030; J1170; J1885; J2270; J2405; J2704; J7030; J7040; J7120; Q9967